=== PATIENT | female | born 1970 | race African-American/Black ===

== ENCOUNTER 2017-03-11 10:03 | Inpatient (IN) | payer OTHER ==
[~2017-03-11] VITALS: Ht 177.8 cm; Wt 122.2 kg
--- NOTE | ~2017-03-11 | US85 ---
"[facility] A Service of [facility] & [facility] RADIOLOGY TEXT RESULTS PATIENT: ZULMA CHURCH LOCATION: [facility] 314-01 : 70 UNIT #: [id number] AGE: [address]: Laura Clark MD SEX: F ORDER DR: [id number] [facility] [address] [facility]. [place], [place] [address] [id number] I MR#: [id number] Acc #: [id number] NAME: ZULMA CHURCH. : 1970 SEX: F STUDY DATE/TIME: 03/11/2017 11:32 UNIT: [address] ROOM: [facility] STUDY DESCRIPTION: US LE Veins Unilat or Ltd Stdy Attending Physician: Juliet Ramos M.D. Ordering Physician: Radha Dye M.D. Primary Care Physician: Primary Care Physician No MEDICAL IMAGING REPORT This report is preliminary unless electronic signature is present EXAM Lower extremity ultrasound for DVT on the left, 03/11/2017 INDICATIONS Leg pain for a week on the left. No history of DVT. TECHNIQUE Robbnis-scale, color Doppler and spectral analysis of the left lower extremity was performed. We have no comparisons. FINDINGS No evidence of DVT in the left lower extremity. Visualized venous structures demonstrate phasicity and compressibility. IMPRESSION 1. No DVT in the left lower extremity. | Dictated by... Tod Diallo M.D. THIS IS AN ELECTRONICALLY VERIFIED REPORT Tod Diallo M.D. at 03/12/2017 1:50 PM OZZY/khushboo TD: 03/12/2017 08:08 JOB #: [id number] MEDICAL IMAGING REPORT Page 1 of 1 COPY"
--- NOTE | ~2017-03-11 | EKG ---
PATIENT: ZULMA CHURCH UNIT #: [id number] Ventricular Rate: 50 BPM Atrial Rate: 50 BPM P-R Interval: 130 ms QRS Duration: 74 ms Q-T Interval: 418 ms QTC Calculation(Bezet): 381 ms P Dyer: 63 degrees Calculated R Dyer: 72 degrees Calculated T Dyer: 37 degrees Diagnosis Line: Sinus bradycardia Diagnosis Line: Nonspecific T wave abnormality Diagnosis Line: Abnormal ECG Diagnosis Line: No previous ECGs available Diagnosis Line: Confirmed by GABRIEL KRISHNA MD ([id number]) on Diagnosis Line: 03/12/2017 8:01:26 AM INTERPRETING MD: TOMI PITTS
--- NOTE | ~2017-03-11 | CR126 ---
[facility] A Service of [facility] & [facility] RADIOLOGY TEXT RESULTS PATIENT: ZULMA CHURCH LOCATION: [facility] 314-01 : [birth year] UNIT #: [id number] AGE: [address]: Laura Clark MD SEX: F ORDER DR: [id number] [facility] [address] [facility]. [place], [place] [address] [id number] I MR#: [id number] Acc #: [id number] NAME: ZULMA CHURCH. : 1970 SEX: F STUDY DATE/TIME: 03/11/2017 11:08 UNIT: [address] ROOM: [facility] STUDY DESCRIPTION: CR Foot Complete Min 3 View Lt Attending Physician: Juliet Ramos M.D. Ordering Physician: Radha Dye M.D. Primary Care Physician: No Primary Care Physician MEDICAL IMAGING REPORT This report is preliminary unless electronic signature is present EXAM Left foot. HISTORY Lateral foot pain and swelling onset today with no known trauma. TECHNIQUE 3 views foot were obtained. FINDINGS 3 views of the foot show small plantar heel spur. Chronic appearing ossifications are seen along the peroneal tendons. There is no evidence of fracture, bone destruction or erosion. Joint spaces of the foot are preserved. IMPRESSION No acute findings. Small plantar heel spur. Chronic appearing calcifications along the peroneal tendons near the base of the fifth metatarsal. Dictated by... Ho Hamm M.D. THIS IS AN ELECTRONICALLY VERIFIED REPORT Ho Hamm M.D. at 03/13/2017 6:00 AM MINE/mateusz TD: 03/12/2017 07:41 JOB #: [id number] MEDICAL IMAGING REPORT Page 1 of 1 COPY
--- NOTE | ~2017-03-11 | CT16 ---
[facility] A Service of [facility] & [facility] RADIOLOGY TEXT RESULTS PATIENT: ZULMA CHURCH LOCATION: [facility] 314-01 : [birth year] UNIT #: [id number] AGE: [address]: Laura Clark MD SEX: F ORDER DR: [id number] [facility] [address] [facility]. [place], [place] [address] [id number] I MR#: [id number] Acc #: [id number] NAME: ZULMA CHURCH : 1970 SEX: F STUDY DATE/TIME: 03/11/2017 13:19 UNIT: [address] ROOM: [facility] STUDY DESCRIPTION: CT Angio Chest for PE Attending Physician: Juliet Ramos M.D. Ordering Physician: Radha Dye M.D. Primary Care Physician: Primary Care Physician No MEDICAL IMAGING REPORT This report is preliminary unless electronic signature is present EXAM CT chest PE protocol. HISTORY Upper back pain, severe back pain onset today. History of pleurisy. The CT exam was performed with one or more of the following radiation dose reduction techniques: automatic exposure control, adjustment of mA and/or kV according to patient size, and iterative reconstruction. FINDINGS Axial images performed through the chest following IV contrast. 3-D coronal and sagittal reconstructed images reviewed at a workstation. There is left basilar volume loss with some associated parenchymal opacity may represent atelectasis or less likely developing pneumonitis. Probable small amount of right basilar atelectasis. No effusions. Trachea bronchi unremarkable. No pulmonary embolus. Aorta unremarkable. Mild cardiomegaly. No significant lymphadenopathy. The upper abdomen remarkable for a moderate sized hiatal hernia. Questionable density within the gallbladder raises a concern for possible large gallstone is only partially imaged on this examination. Thoracic inlet suggests mild thyromegaly. Extrathoracic soft tissues unremarkable. IMPRESSION 1. No evidence of pulmonary embolus. 2. Left basilar atelectasis and parenchymal opacity probably represents atelectatic changes with focal pneumonitis considered less likely. 3. Moderate sized hiatal hernia. 4. Partially visualized and apparent density within the gallbladder raises a concern for possible cholelithiasis. No CT evidence of acute cholecystitis on this limited evaluation. [facility] A Service of [facility] & [facility] RADIOLOGY TEXT RESULTS PATIENT: ZULMA CHURCH LOCATION: [facility] 314-01 : [birth year] UNIT #: [id number] AGE: [address]: Laura Clark MD SEX: F ORDER DR: 4. Thyromegaly. Dictated by... Josy Iglesias M.D. THIS IS AN ELECTRONICALLY VERIFIED REPORT Josy Iglesias M.D. at 03/12/2017 10:03 AM JASON/rubin TD: 03/12/2017 08:39 JOB #: [id number] MEDICAL IMAGING REPORT Page 1 of 1 COPY
--- NOTE | ~2017-03-11 | US6 ---
[facility] A Service of [facility] RADIOLOGY TEXT RESULTS PATIENT: ZULMA CHURCH LOCATION: [facility] 314- : 70 UNIT #: [id number] AGE: [address]: Laura Clark MD SEX: F ORDER DR: [id number] [address] [address] [id number] I MR#: [id number] Acc #: [id number] NAME: ZULMA CHURCH. : 1970 SEX: F STUDY DATE/TIME: 03/12/2017 8:12 UNIT: C3A PCU ROOM: [address] [place] [address] DESCRIPTION: US Abdominal Limited Attending Physician: Laura Clark M.D. Ordering Physician: Juliet Ramos M.D. MEDICAL IMAGING REPORT This report is preliminary unless electronic signature is present EXAM Right quadrant ultrasound 03/12/2017 HISTORY Right upper quadrant pain and right flank pain for 1 day. Pain worse over last 6 hours. Abnormal gallbladder. COMPARISON STUDIES CT chest PE protocol 03/11/2017. FINDINGS Pancreatic tail is partially obscured by bowel gas but the visualized pancreas appears normal. Intrahepatic IVC demonstrates normal color flow. Right kidney measures 11.3 cm in length without focal cortical lesion, shadowing stone or hydronephrosis. The liver size is within normal limits, 16.5 cm in length. The liver demonstrates normal echotexture without focal or suspicious abnormality. Common bile duct caliber is upper limits normal, 6 mm. No common bile duct obstructing lesion is identified. The gallbladder wall is abnormally thickened up to 7 mm. Shadowing stones are seen layering dependently within the gallbladder, and there is gallbladder sludge. No definite intrahepatic biliary ductal dilation is identified. No ascites is seen. [facility] A Service of [facility] RADIOLOGY TEXT RESULTS PATIENT: ZULMA CHURCH LOCATION: [facility] 314- : 70 UNIT #: [id number] AGE: [address]: Laura Clark MD SEX: F ORDER DR: IMPRESSION 1. Abnormal appearance of the gallbladder. The gallbladder wall thickened, and the gallbladder contains shadowing stone and sludge. Findings may represent changes of acute or chronic cholecystitis. 2. Common bile duct caliber is just at upper limits normal, 6 mm. No CBD stone is seen. No intrahepatic biliary ductal dilation. Dictated by... Wendy Mccann M.D. THIS IS AN ELECTRONICALLY VERIFIED REPORT Wendy Mccann M.D. at 03/13/2017 10:51 AM ROBERT/cori TD: 03/12/2017 16:30 JOB #: [id number] MEDICAL IMAGING REPORT Page 1 of 1 COPY
--- NOTE | ~2017-03-11 | CR72 ---
[facility] A Service of [facility] & [facility] RADIOLOGY TEXT RESULTS PATIENT: ZULMA CHURCH LOCATION: [facility] 314-01 : [birth year] UNIT #: [id number] AGE: [address]: Laura Clark MD SEX: F ORDER DR: [id number] [facility] [address] [facility]. [place], [place] [address] [id number] I MR#: [id number] Acc #: [id number] NAME: ZULMA CHURHC. : 1970 SEX: F STUDY DATE/TIME: 03/11/2017 11:05 UNIT: [address] ROOM: [facility] STUDY DESCRIPTION: CR Chest Single View Portable Attending Physician: Juliet Ramos M.D. Ordering Physician: Radha Dye M.D. Primary Care Physician: No Primary Care Physician MEDICAL IMAGING REPORT This report is preliminary unless electronic signature is present EXAM Portable chest HISTORY Shortness of breath with upper back pain. Chest pain. Onset today. TECHNIQUE A single AP view of the chest was obtained. FINDINGS A single AP portable view of the chest shows both lungs to be clear. The heart is normal in size. The mediastinal contour is normal. No significant bone abnormalities are seen. IMPRESSION Normal portable chest. Dictated by... Ho Hamm M.D. THIS IS AN ELECTRONICALLY VERIFIED REPORT Ho Hamm M.D. at 03/13/2017 6:00 AM MINE/khushboo TD: 03/12/2017 07:38 JOB #: [id number] MEDICAL IMAGING REPORT Page 1 of 1 COPY
--- NOTE | ~2017-03-11 | HP ---
Unit #: [id number] #: [id number] Patient: ZULMA CHURCH [id number] [facility] [address] [facility]. [place], [place] [address] [id number] I MR#: [id number] NAME: ZULMA CHURCH. ROOM: 314 Age: Sex: F Admission Date: 03/11/2017 : 1970 Attending Physician: Juliet Ramos M.D. Primary Care Physician: No Primary Care Physician HISTORY AND PHYSICAL CHIEF COMPLAINT Back pain. HISTORY OF PRESENT ILLNESS The patient is a 46-year-old female with a past medical history of what sounds like eclampsia who presented to the emergency department for evaluation of the above. The patient states that she was in her usual state of health until the morning of admission when she experienced back pain. The pain was in the upper back. She describes it as "severe." Was exacerbated by deep breathing. She denies any fever. She states that she has an occasional cough. She states that it is similar to when she has pleurisy in the past. She also was complaining of swelling involving the left ankle and leg that started today. In the emergency department, initial blood pressure was 217/74, pulse 60. The patient had a CT of the chest PE protocol that showed no PE. Left lower extremity venous Doppler was negative. She was given 1 mg of Dilaudid as well as 4 mg of Zofran. She is being admitted to [facility] for evaluation and further treatment. PAST MEDICAL HISTORY 1. Seizure. The patient states that she had a seizure during . 2. Hypertension. Again, this was during . SURGICAL HISTORY . SOCIAL HISTORY The patient smokes a pack of cigarettes every 3 days. She reports occasional alcohol use. She works as a central aisle cashier. FAMILY HISTORY Notable for her mother having valvular heart disease, diabetes, hypertension. ALLERGIES No known allergies. HOME MEDICATIONS None. REVIEW OF SYSTEMS Unit #: [id number] #: [id number] Patient: ZULMA CHURCH A complete review of systems is negative except as indicated in the HPI. DIAGNOSTIC TESTS CARDIOVASCULAR: EKG shows sinus bradycardia with a rate of 50 beats per minute. There is T wave flattening in V4 through V6. IMAGING: CT of the chest PE protocol shows no PE. There is left basilar atelectasis as well as a density within the gallbladder concerning for possible cholelithiasis. Left lower extremity venous Doppler is negative for DVT. Left foot x-ray shows nothing acute. Left ankle x-ray shows nothing acute. LABORATORY: Troponin is less than 0.05. Urinalysis is notable for 1+ blood with 0-2 red blood cells. Comprehensive metabolic panel is completely normal. INR is 0.9. Complete blood count notable for MCV of 80.2. PHYSICAL EXAMINATION VITAL SIGNS: Temperature is 98.2, pulse 60, respirations 16, blood pressure 217/74, most recently 144/122. Oxygen saturation 100% on room air. GENERAL: The patient is an -[place] female who is awake and alert, in no acute distress. HEENT: The head is atraumatic. Mucous membranes are moist. NECK: Supple. Trachea is midline. CARDIOVASCULAR: Regular rate and rhythm. LUNGS: Clear to auscultation bilaterally with no increased work of breathing. ABDOMEN: Obese, soft, nontender with bowel sounds present in all four quadrants. MUSCULOSKELETAL: The patient is mildly tender to palpation in the upper back between the shoulder blades. EXTREMITIES: The left lower extremity is mildly edematous at the ankle. NEURO: The patient is awake and alert. She follows commands. PSYCH: Mood and affect are normal. The patient is cooperative. SKIN: Skin of examined areas is warm and dry. ASSESSMENT The patient is a 46-year-old female with: 1. Uncontrolled hypertension. Initial blood pressure was 217/74, most recently 144/122. 2. Sinus bradycardia with a rate of 50. Currently heart rate was in the 70s. 3. History of seizure during , not ever on anti-epileptic medications. 4. Abnormal CT, concerning for possible cholelithiasis without evidence of cholecystitis. 5. Tobacco abuse. 6. Morbid obesity with a BMI of 43. PLAN 1. Admit for observation to intermediate level. Unit #: [id number] #: [id number] Patient: ZULMA CHURCH 2. Healthy heart diet. 3. NPO after midnight for right upper quadrant ultrasound. 4. P.r.n. hydralazine. 5. 2D echo. 6. TSH. 7. Serial cardiac enzymes. 8. Monitor heart rate closely. 9. Right upper quadrant ultrasound for further evaluation of possible cholelithiasis. 10. P.r.n. Tylenol. 11. P.r.n. Zofran. 12. Urine tox screen on urine in the lab. 13. Repeat labs in the morning. 14. SCDs for DVT prophylaxis. 15. Additional workup and consultants based on above. Dictated by Raheem Ho/lashae TD: 03/12/2017 06:10 JOB #: [id number] HISTORY AND PHYSICAL Page 1 of 1 X Juliet Ramos MD X HISTORY AND PHYSICAL
--- NOTE | ~2017-03-11 | CO ---
Unit #: [id number] #: [id number] Patient: ZULMA CHURCH [id number] [address] [address] [id number] I MR#: [id number] NAME: ZULMA CHURCH ROOM: 314 Age: 46 Sex: F Admission Date: 03/11/2017 : 1970 Attending Physician: Laura Clark M.D. Primary Care Physician: Primary Care Physician No Consultation Date: 03/12/2017 CONSULTATION REPORT BRIEF HISTORY The patient is a 46-year-old lady with long history of abdominal/right flank pain. This has been worked up from a PE standpoint. Now, she is found to have gallstones and sludge with thickened gallbladder wall on ultrasound. PAST MEDICAL HISTORY None. MEDICATIONS She is on no chronic medications. PAST SURGICAL HISTORY section. SOCIAL HISTORY Does smoke half pack per day. No alcohol. FAMILY HISTORY Negative for GI malignancy. REVIEW OF SYSTEMS No cardiopulmonary complaints at this time. Else, 10 systems reviewed negative. PHYSICAL EXAMINATION GENERAL: She is awake, alert, appropriate, currently afebrile. HEENT: Unremarkable. NECK: Supple. No JVD. Trachea midline. LUNGS: Clear to auscultation. Bilateral breath sounds symmetric. CARDIOVASCULAR: Regular rate and rhythm. ABDOMEN: Soft. It is mildly tender in the right upper quadrant epigastric region. No rebound. No masses palpable. No hernias. EXTREMITIES: No clubbing, cyanosis, or edema. DIAGNOSTIC STUDIES LABORATORY RESULTS: Show a normal white count. Chemistries are normal. ASSESSMENT Chronic cholecystitis, now symptomatic. PLAN Recommend laparoscopic cholecystectomy. Discussed risks and benefits in detail. All questions were answered. Unit #: [id number] #: [id number] Patient: ZULMA CHURCH Dictated by... Raheem Garcia/jamison TD: 03/12/2017 14:25 JOB #: [id number] CONSULTATION REPORT Page 1 of 1 X Alvin Garcia MD X CONSULTATION REPORT
--- NOTE | ~2017-03-11 | US98 ---
[facility] A Service of [facility] & [facility] RADIOLOGY TEXT RESULTS PATIENT: ZULMA CHURCH LOCATION: [facility] 314-01 : [birth year] UNIT #: [id number] AGE: [address]: Laura Clark MD SEX: F ORDER DR: [id number] [facility] [address] [facility]. [place], [place] [address] [id number] I MR#: [id number] Acc #: [id number] NAME: ZULMA CHURCH. : 1970 SEX: F STUDY DATE/TIME: 03/12/2017 16:58 UNIT: [address] ROOM: [facility] STUDY DESCRIPTION: US Pelvic Non-OB Complete Attending Physician: Laura Clark M.D. Ordering Physician: Laura Clark M.D. Primary Care Physician: Primary Care Physician No MEDICAL IMAGING REPORT This report is preliminary unless electronic signature is present EXAM Transabdominal and transvaginal pelvic ultrasound. Date: 03/12/2017 HISTORY Abnormal menses for 3 months. No known pelvic mass. Previous section. COMPARISON No prior abdominal imaging at this institution for comparison. FINDINGS The uterus measures approximately 9.4 x 5.3 x 5.5 cm. Two hypoechoic foci are demonstrated within the uterine myometrium consistent with intramural fibroids. Only 1 of these is demonstrated in the posterior mid uterine body measuring 1.6 x 1.8 x 0.9 cm. Another is demonstrated within the uterine fundus measuring 1.6 x 1.8 x 1.2 cm. A circumscribed hypoechoic lesion is demonstrated within the endovaginal region, thought to be separate from the uterine body based upon the images submitted. This lesion measures 2.5 x 2.5 x 1.6 cm and demonstrates no internal vascularity on color-Doppler imaging, but there is vascularity within the surrounding soft tissues. The endometrial bilayer thickness is within normal limits measuring about 1 cm. No focal endometrial lesion is seen. Incidental note is made of a fibrous defect within the lower uterine body segment anteriorly consistent with a site of previous section. The right ovary measures 3.1 x 2.8 x 2.8 cm. The left ovary measures 2.2 x 1.9 x 2.4 cm. Both ovaries demonstrate normal echotexture without STS. [facility] A Service of [facility] RADIOLOGY TEXT RESULTS PATIENT: ZULMA CHURCH LOCATION: A 314-01 : [birth year] UNIT #: [id number] AGE: [address]: Laura Clark MD SEX: F ORDER DR: cystic or solid abnormality. Both ovaries demonstrate normal color and spectral Doppler flow. IMPRESSION 1. Approximately 2.5 cm hypoechoic lesion within the region of the vagina, appears centrally positioned. It is unclear whether this represents a cystic lesion with thick internal hemorrhagic proteinaceous debris, or solid renal lesion. The absence of color Doppler flow within it suggests it may represent a complex cystic lesion with thick internal debris. The differential diagnosis is wide. Differential diagnosis can include but is not limited to a vaginal inclusion cyst, Kayce duct cyst, focal endometriosis or even a leiomyoma. Vaginal malignancy thought less likely, given the lack of internal vascularity and presence of well-circumscribed lesions. This should be readily visible upon physical examination. Gynecologic consultation is recommended with respect to this finding. 2. Two intramural uterine fibroids, the dominant in the fundus measuring up to 1.8 cm. 3. Normal appearance of the endometrial bilayer. 4. Normal sonographic appearance of each ovary with normal flow to each ovary. 5. No pelvic free fluid. Dictated by... Wendy Mccann M.D. THIS IS AN ELECTRONICALLY VERIFIED REPORT Wendy Mccann M.D. at 03/15/2017 9:40 AM JOSSELYN/giuliana TD: 03/13/2017 14:57 JOB #: [id number] MEDICAL IMAGING REPORT Page 1 of 1 COPY
--- NOTE | ~2017-03-11 | CR20 ---
[facility] A Service of [facility] & [facility] RADIOLOGY TEXT RESULTS PATIENT: ZLUMA CHURCH LOCATION: [facility] 314-01 : [birth year] UNIT #: [id number] AGE: [address]: Laura Clark MD SEX: F ORDER DR: [id number] [facility] [address] [facility]. [place], [place] [address] [id number] I MR#: [id number] Acc #: [id number] NAME: ZULMA CHURCH. : 1970 SEX: F STUDY DATE/TIME: 03/11/2017 11:07 UNIT: [address] ROOM: [facility] STUDY DESCRIPTION: CR Ankle Min 3 Views Lt Attending Physician: Juliet Ramos M.D. Ordering Physician: Radha Dye M.D. Primary Care Physician: No Primary Care Physician MEDICAL IMAGING REPORT This report is preliminary unless electronic signature is present EXAM Left ankle. HISTORY Left ankle pain and swelling laterally. Onset today. No known trauma. TECHNIQUE 3 views of the left ankle were obtained. FINDINGS There is a small bone spur at the tip of the medial malleolus. There is no evidence of fracture or dislocation and no subluxation is seen. The ankle mortise is symmetric and the dome of the talus is intact. IMPRESSION Small spur at the medial malleolus. No acute findings. Dictated by... Ho Hamm M.D. THIS IS AN ELECTRONICALLY VERIFIED REPORT Ho Hamm M.D. at 03/13/2017 6:00 AM RLF/gz TD: 03/12/2017 07:38 JOB #: [id number] MEDICAL IMAGING REPORT Page 1 of 1 COPY
--- NOTE | ~2017-03-11 | OR ---
Unit #: [id number] #: [id number] Patient: ZULMA CHURCH [id number] [address] [address] [id number] I MR#: [id number] NAME: ZULMA CHURCH ROOM: [facility] Date of Procedure: 03/13/2017 Admission Date: 03/11/2017 Surgeon: Jed Gu Jr., M.D. : 1970 Attending Physician: Laura Clark M.D. Primary Care Physician: Primary Care Physician No OPERATIVE REPORT INDICATIONS FOR PROCEDURE The patient is a 46-year-old obese black female, who presented through the emergency room complaining of severe mid epigastric upper abdominal pain. Workups revealed evidence of cholecystitis with probable cholelithiasis. She is brought to the operating room at this time for laparoscopic cholecystectomy. Preoperative liver function tests are normal. PREOPERATIVE DIAGNOSES Cholecystitis with cholelithiasis. POSTOPERATIVE DIAGNOSES Cholecystitis with cholelithiasis, noting acute cholecystitis with significant inflammation in the area of the rosemarie hepatis and large stone. ANESTHESIA General with endotracheal intubation and 0.25% Marcaine with epinephrine locally. PROCEDURE PERFORMED Laparoscopic lysis of adhesions requiring 10 to 15 minutes along with laparoscopic cholecystectomy. DESCRIPTION OF PROCEDURE The patient was positioned in supine position. After being anesthetized and intubated, she was prepped and draped in routine fashion for laparoscopic cholecystectomy. A small 5 mm Optiview was placed through a small 0.5 cm incision in the right lateral abdominal wall area and the abdomen inflated with CO2 gas. The camera was introduced in the abdomen. There was no evidence of any injury related to introduction of the Optiview. A small 0.5 cm incision was made in the supraumbilical area and this was carried down to the fascia. A 5-mm port was introduced directly into the abdomen at this point, and the camera shifted to the supraumbilical port. Brief intraabdominal exploration was carried out. The patient noted to have a wrapped gallbladder, which was somewhat intrahepatic and appeared to be the both subacutely and chronically inflamed. After placing an 11-mm port just right of the upper midline, an another 5 mm port in the right lateral abdominal wall area. The gallbladder was then grasped and multiple adhesions were dissected free using both hook scissors and blunt dissection. This required approximately 15 minutes. After mobilizing the entire gallbladder down towards the area of the triangle of Calot, there was obvious inflammatory changes in the area of the triangle of Calot. These were all dissected Unit #: [id number] #: [id number] Patient: ZULMA CHURCH and the cystic duct which was very small only 1 mm or so in diameter was isolated, hemoclipped x4, and divided. The cystic artery was identified, hemoclipped x3, and divided. The common duct appeared normal. Cystic duct was clipped approximately 1 cm from its junction with the common duct. After this was complete, the gallbladder was then removed from its bed with the hook cautery using a current of 20 and after it was released, it was placed in EndoCatch bag and brought out through the upper midline port site after this was extended approximately 0.5 cm for removal of the gallbladder with this large stone within it. After this was performed, the gallbladder was removed as noted above with EndoCatch bag and brought out through the larger port site along with the port and the port replaced. Subhepatic space checked. There was no evidence of any bleeding from the gallbladder bed. The clips on cystic duct and cystic artery were intact with no evidence of any leak or bleeding. One sponge was packed intraabdominal and used to absorb the small amount of blood and then removed directly. After the sponge count was correct x3, the CO2 was expressed from the abdomen. Ports removed. There was no evidence of any bleeding from the port sites. The fascia in the larger port site to the right of the upper midline was approximated with 2 separate [id number] 0 Vicryl sutures. The wound was irrigated. After hemostasis achieved with Bovie cautery, they were injected with 0.25% Marcaine with epinephrine and the skin edges on all the wounds were approximated with stainless-steel skin clips and skin stapling device. Sterile dressings were applied externally. Estimated blood loss less than 75 mL. The patient received less than 2000 mL of crystalloid solution during the procedure. Sponges and instruments counts were correct x3. No drains used. No complications. The patient was taken to the recovery room with stable vital signs in satisfactory condition. Dictated by... Jed Gu Jr., M.D. JMB/jamison TD: 03/13/2017 14:20 JOB #: [id number] OPERATIVE REPORT Page 1 of 1 X Jed Gu MD PROCEDURE OPERATIVE NOTE
--- NOTE | ~2017-03-11 | DS ---
Unit #: [id number] #: [id number] Patient: ZULMA CHURCH [id number] [address] [address] [id number] I MR#: [id number] NAME: ZULMA CHURCH ROOM: 314 Age: 46 Sex: F Admission Date: 03/11/2017 : 1970 Discharge Date: 03/14/2017 Attending Physician: Laura Clark M.D. Primary Care Physician: No Primary Care Physician DISCHARGE SUMMARY PRINCIPAL DIAGNOSES 1. Hypertension, controlled. 2. Symptomatic chronic cholecystitis, status post laparoscopic cholecystectomy. 3. Vaginal mass, likely cystic in origin. 4. Abnormal menses. 5. Microcytosis with normal iron indices. 6. Sinus bradycardia, now resolved. 7. Probable obstructive sleep apnea. 8. Morbid obesity. 9. Abnormal urine drug screen, positive for marijuana and cocaine. I will note patient admits to marijuana use but denies cocaine use. CONSULTANTS Dr. Gu - General Surgery. PROCEDURES 1. Laparoscopic lysis of adhesions and laparoscopic cholecystectomy on March 13, 2017. This occurred without complication. 2. Chest x-ray on March 11, 2017, which was normal. 3. X-ray of left ankle on March 11, 2017, with a small spur at the medial malleolus. No other acute findings. 4. X-ray of left foot on March 11, 2017, again without any acute findings. Calcifications along the peroneal tendon noted. 5. Left lower extremity venous Dopplers were negative for DVT. 6. CT angiogram of the chest on March 11, 2017, which was negative for PE. Left basilar atelectasis noted. Moderate size hiatal hernia noted. Density within the gallbladder concerning for cholelithiasis noted. Thyromegaly noted. 7. Right upper quadrant ultrasound on March 12, 2017, with thickening of the gallbladder and multiple evidence of gallbladder stones and sludge, mildly elevated at 6 mm. No common bile duct stone noted. 8. Transvaginal ultrasound on March 12, 2017, with a 2.5 cm hyperechoic lesion in the region of the vagina. Difficult to determine whether this is a cystic lesion with thick internal hemorrhagic proteinaceous debris or solid lesion. There was no color Doppler noted. 2 intramural uterine fibroids measuring 1.8 cm noted. Normal endometrial bilayer noted. No pelvic free fluid noted. CLINICAL HISTORY/HOSPITAL COURSE Ms. Church is a 46-year-old -[place] female who presents initially to this emergency room with complaints of back pain and left leg pain. Her back pain was initially began over the right shoulder and then Unit #: [id number] #: [id number] Patient: ZULMA CHURCH spread to the bilateral shoulder blades. In the emergency department, she was found to have a significantly elevated blood pressure. She underwent multiple imaging studies, all of which were unremarkable, and she was initially placed in the hospital for treatment of blood pressure. Patient was placed on empiric lisinopril and blood pressures remained stable since that time. I will note, as noted above, urine drug screen was positive for cocaine. I did ask the patient and she does admit to marijuana use but denies cocaine. Perhaps cocaine is present in patient's marijuana and/or other use contributed to her significant hypertension. She has been counseled to avoid any other illicit drugs. Will be discharged on lisinopril. Imaging of the chest revealed significant cholelithiasis and after further discussion patient was having intermittent nausea, vomiting with eating. Right upper quadrant ultrasound was done and was abnormal as noted. General surgery was consulted and patient underwent laparoscopic cholecystectomy. Postoperatively, she has done well and is tolerating a diet. Will follow up with surgery on an outpatient basis. Patient was also complaining of abnormal menses and has a history of a vaginal mass which has undergone biopsy at several occasions with unknown pathology. Transvaginal ultrasound was done with results as noted. Following transvaginal ultrasound patient began her menses which I suspect is coincidental. She can follow up with gynecology on an outpatient basis. Patient will be discharged home today. DISCHARGE CONDITION Stable. DISCHARGE STATUS Discharge to home. DISCHARGE MEDICATIONS 1. [place] 7.5/325 mg, 1-2 tablets p.o. q.6 hours p.r.n. for pain, number given 30. 2. Lisinopril 20 mg daily with 1 month refill given. DISCHARGE INSTRUCTIONS Patient was instructed to follow a heart healthy low calorie diet. She can increase her activity as tolerated. Is not to drive until off pain medication for 24 hours. FOLLOWUP Patient will follow up with her primary cared physician in approximately three weeks. She is to follow up with Dr. Gu in one week. Dictated by... Raheem Palma/lashae TD: 03/15/2017 11:58 JOB #: [id number] Unit #: [id number] #: [id number] Patient: ZULMA CHURCH DISCHARGE SUMMARY Page 1 of 1 X Laura Clark MD X DISCHARGE SUMMARY
[2017-03-11 11:17] LABS: BASOPHIL# 0.1 X10e3 (0-0.3); BASOPHIL% 0.9 % (0-2.5); EOSINOPHIL# 0.2 X10e3 (0-0.7); HEMOGLOBIN 13.8 gm/dL (12.0-16.0); LYMPHOCYTE# 1.7 X10e3 (1.0-3.5); LYMPHOCYTE% 20.8 % (17.0-45.0); MEAN CELL VOLUME 80.2 FL (83-96); MEAN CORPUSCULAR HEMOGLOBIN 26.4 PG (28-34); MEAN CORPUSCULAR HGB CONC 32.9 g/dL (30-36); MEAN PLATELET VOLUME 6.8 FL (6.5-11.5); MONOCYTE# 0.7 X10e3 (0-1.0); MONOCYTE% 8.8 % (3.0-12.0); NEUTROPHIL# 5.4 X10e3 (1.5-7.1); NEUTROPHIL% 67.5 % (40-75); PLATELET COUNT 325 X10e3 (140-420); RED BLOOD COUNT 5.23 X10e (3.90-5.30); RED CELL DISTRIBUTION WIDTH 18.1 % (11.0-15.5)
[2017-03-11 11:18] LABS: DIFF IND NO
[2017-03-11 11:27] LABS: POC - CKMB <1.0 ng/mL (0.0-7.9); POC - TROPONIN <0.05 ng/mL (<=0.05)
[2017-03-11 11:40] LABS: INR 0.9; PARTIAL THROMBOPLASTIN TIME 28.6 SECONDS (23.5-31.3); PROTHROMBIN TIME (PATIENT) 9.8 SECONDS (10.0-11.7)
[2017-03-11 11:53] LABS: ALBUMIN SERUM 3.7 g/dL (3.5-5.0); BILIRUBIN, DIRECT 0.1 mg/dL (0.0-0.2); BILIRUBIN,INDIRECT 0.3 mg/dL (0.0-0.9); BILIRUBIN,TOTAL 0.4 mg/dL (0.2-2.0); CALCIUM SERUM 9.5 mg/dL (8.4-10.2); GLOM FILT RATE Estimated 78.3 mL/min (>60); PROTEIN TOTAL SERUM 7.1 g/dL (6.0-8.3)
[2017-03-11 13:14] LABS: URINE SOURCE CLEAN CATCH
[2017-03-11 13:26] LABS: URINE APPEARANCE CLEAR; URINE BILIRUBIN NEG (NEG); URINE BLOOD 1+ (NEG); URINE COLOR YELLOW; URINE GLUCOSE NEG (NEG); URINE KETONE NEG (NEG); URINE LEUKOCYTE ESTERASE NEG (NEG); URINE NITRATE NEG (NEG); URINE PROTEIN NEG (NEG); URINE SPECIFIC GRAVITY 1.022 (1.003-1.035); URINE UROBILINOGEN 0.2 MG/DL (NEG)
[2017-03-11 13:29] LABS: URBCS1 AUWI 0-2 /[HPF] (0-2); URINE BACTERIA AUWI NEG (NEGATIVE); URINE SQUAMOUS EPITHELIAL CELL OCC /[HPF]; UWBCS1 AUWI 0-2 (0-5)
[2017-03-11 13:37] LABS: CULTURE INDICATED? NO
[2017-03-11 14:02] LABS: POC - CKMB <1.0 ng/mL (0.0-7.9); POC - TROPONIN <0.05 ng/mL (<=0.05)
[2017-03-11 18:54] LABS: AMPHETAMINE NEG (NEG); BARBITURATES NEG (NEG); BENZODIAZEPINES NEG (NEG); COCAINE POS (NEG); MARIJUANA POS (NEG); OPIATES POS (NEG); TRICYCLIC ANTIDEPRESSANTS NEG (NEG); U METHADONE NEG (NEG)
[2017-03-11 20:49] LABS: CK TOTAL 46 IU/L (26-140)
[2017-03-11] MEDS ORDERED: NO MEDICATIONS (21:39)
[2017-03-12 02:32] LABS: HEMOGLOBIN 13.1 gm/dL (12.0-16.0); MEAN CELL VOLUME 79.7 FL (83-96); MEAN CORPUSCULAR HEMOGLOBIN 26.1 PG (28-34); MEAN CORPUSCULAR HGB CONC 32.8 g/dL (30-36); MEAN PLATELET VOLUME 6.9 FL (6.5-11.5); RED BLOOD COUNT 5.03 X10e (3.90-5.30); RED CELL DISTRIBUTION WIDTH 17.9 % (11.0-15.5)
[2017-03-12 03:02] LABS: GLOM FILT RATE Estimated 78.3 mL/min (>60)
[2017-03-12 03:13] LABS: CK TOTAL 48 IU/L (26-140)
[2017-03-12 13:45] LABS: IRON SERUM 19 ug/dL (28-170); TOTAL IRON BINDING CAPACITY 345 ug/dL (269-535); TRANSFERRIN 246 mg/dL (192-382); TRANSFERRIN SATURATION 6 % (20-50)
[2017-03-13 05:44] LABS: HEMATOCRIT 39.1 % (35.0-45.0); HEMOGLOBIN 12.9 gm/dL (12.0-16.0); MEAN CELL VOLUME 80.4 FL (83-96); MEAN CORPUSCULAR HEMOGLOBIN 26.5 PG (28-34); MEAN PLATELET VOLUME 6.9 FL (6.5-11.5); RED BLOOD COUNT 4.87 X10e (3.90-5.30); RED CELL DISTRIBUTION WIDTH 17.4 % (11.0-15.5)
[2017-03-13 06:28] LABS: ALBUMIN SERUM 3.2 g/dL (3.5-5.0); BILIRUBIN,TOTAL 0.2 mg/dL (0.2-2.0); CALCIUM SERUM 8.5 mg/dL (8.4-10.2); CREATININE SERUM 0.8 mg/dL (0.6-1.4); GLOM FILT RATE Estimated 102.6 mL/min (>60); POTASSIUM 4.2 mmol/L (3.5-5.1); PROTEIN TOTAL SERUM 5.9 g/dL (6.0-8.3)
[2017-03-14 06:14] LABS: HEMATOCRIT 39.9 % (35.0-45.0); HEMOGLOBIN 13.1 gm/dL (12.0-16.0); MEAN CELL VOLUME 79.9 FL (83-96); MEAN CORPUSCULAR HEMOGLOBIN 26.2 PG (28-34); MEAN CORPUSCULAR HGB CONC 32.8 g/dL (30-36); MEAN PLATELET VOLUME 7.4 FL (6.5-11.5); RED CELL DISTRIBUTION WIDTH 17.4 % (11.0-15.5); WHITE BLOOD COUNT 7.8 X10e3 (4.0-10.5)
[2017-03-14 06:50] LABS: ALBUMIN SERUM 3.3 g/dL (3.5-5.0); BILIRUBIN,TOTAL 0.7 mg/dL (0.2-2.0); CALCIUM SERUM 8.4 mg/dL (8.4-10.2); CREATININE SERUM 0.9 mg/dL (0.6-1.4); GLOM FILT RATE Estimated 88.9 mL/min (>60); POTASSIUM 3.9 mmol/L (3.5-5.1); PROTEIN TOTAL SERUM 6.3 g/dL (6.0-8.3)
[2017-03-14] MEDS ORDERED: HYDROCODON-ACE1 EAC9 PO (14:47)
[2017-03-14] MEDS ORDERED: LISINOPRIL20 MG PO (14:47)
== END 2017-03-14 18:36 | disposition home or self-care (01) | DRG 418 ==
LOC: CED 10:03 → C3A PCU 17:10 → CEDOF 17:10 → CED 17:10 → CEDOF 17:41 → C3A PCU 21:27 → CEDOF 21:27 → C3A PCU 21:27
PROVIDERS: Emergency Medicine; Family Medicine; Internal Medicine
PROC: B32TYZZ Computerized Tomography (CT Scan) of Left Pulmonary Artery using Other Contrast (ICD-10-PCS; 2017-03-11)
PROC: B32SYZZ Computerized Tomography (CT Scan) of Right Pulmonary Artery using Other Contrast (ICD-10-PCS; 2017-03-11)
PROC: B246YZZ Ultrasonography of Right and Left Heart using Other Contrast (ICD-10-PCS; principal; 2017-03-12)
PROC: 0FT44ZZ Resection of Gallbladder, Percutaneous Endoscopic Approach (ICD-10-PCS; 2017-03-13)
DX: K80.10 Calculus of gallbladder with chronic cholecystitis without obstruction (principal); E44.1 Mild protein-calorie malnutrition; I10 Essential (primary) hypertension; Z68.41 Body mass index [BMI] 40.0-44.9, adult; F17.210 Nicotine dependence, cigarettes, uncomplicated; J44.9 Chronic obstructive pulmonary disease, unspecified; G47.33 Obstructive sleep apnea (adult) (pediatric); E66.01 Morbid (severe) obesity due to excess calories; F12.10 Cannabis abuse, uncomplicated; N89.9 Noninflammatory disorder of vagina, unspecified; N92.6 Irregular menstruation, unspecified; R00.1 Bradycardia, unspecified
CPT/HCPCS: 36415; 71010; 71275; 73610; 73630; 76705; 76830; 76856; 80048; 80053; 80076; 80307; 81003; 82550; 82553; 82607; 83540; 83550; 84443; 84484; 84703; 85025; 85027; 85610; 85730; 88304; 93005; 93306; 93971; 94010; 96374; 96375; 99285; J0131; J0330; J0360; J0690; J1170; J1650; J2250; J2270; J2405; J3010; Q9967